=== PATIENT | male | born 1970 | race Caucasian/White ===

== ENCOUNTER → 2017-05-27 | Outpatient (CLI) | payer MEDICARE, MEDICAID ==
--- NOTE | 2017-06-03 06:35 | RADIOLOGY REPORT PS360 ---
CT LUMBAR SPINE W/O CONTRAST CLINICAL INDICATION: LOW BACK PAIN ORDERING PHYSICIAN: Tom Boyd MD PATIENT AGE: 46 years COMPARISON: None TECHNIQUE:Axial, sagittal, and coronal images are generated and reviewed without contrast COMPARISON: None FINDINGS:There is severe dural ectasia extending from L4 to the S2 level with posterior scalloping of the L4 and L5 vertebral bodies as well as the upper sacrum with marked enlargement of the right S1 sacral foramen with a large approximately 8.5 x 9 x 6 cm meningocele or pseudomeningocele extending into the posterior pelvic cavity and presacral region at the centered in the right presacral area. This also extends into the posterior paraspinal region on the right at the S1 area. There is severe fragmentation of the posterior elements on the right at L5 and S1 which appear chronic. There is a fracture of the anterior aspect of the pedicle at L4 on the right age indeterminate. Moderate L4, L5, and S1 facet hypertrophy and osteophytosis There is chronic fragmentation of the superior aspect of S1 vertebral body. There is grade 3 spondylolisthesis of L5 on S1 and there are pars defects at both L4 and L5 bilaterally. There is an old fracture of the right L5 pedicle as well as old fractures of the left L1, L2, and L3 transverse processes. There is an IVC filter present. IMPRESSION: 1. Intrasacral meningocele/pseudomeningocele as described above with marked widening of the spinal canal at the L4 and L5 region and upper sacrum with extension of the meningocele into the right aspect of the pelvis and posterior paraspinal region. 2. 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 3. Old fracture of the right L5 pedicle. There is a fracture of the right L4 pedicle age-indeterminate. Old fractures of L1-L2 and L3 transverse processes. 4. Moderate L4, L5, and S1 facet hypertrophy and osteophytosis
== END ==
LOC: RAD 13:33
DX: M54.5 Low back pain (principal)